=== PATIENT | female | born 1975 | race Caucasian/White ===

== ENCOUNTER 2017-09-24 03:57 | Inpatient (IN) | payer MEDICARE, MEDICAID ==
[2017-09-24] VITALS (15 sets, daily range): BP systolic 98–167; BP diastolic 63–108
[~2017-09-24] VITALS: Ht 165.1 cm; Wt 67.9 kg
[~2017-09-24 03:57] MED LIST: CLIN-79 PO; ESOM20CA PO; HYDR-569 PO; INSU100V36 SQ; LANTUS SQ; LISI-222 PO; SYN0.025T PO
[2017-09-24] MEDS ORDERED: normal saline 1000ML IV soln IVB ONE ×3 (04:05→05:35)
[2017-09-24] MEDS ORDERED: ondansetron/PF 4mg/2ml inj IV ONE (04:15)
[2017-09-24] MEDS ORDERED: acetaminophen 325mg tablet PO ONE (04:40)
[2017-09-24 04:45] LABS: BASOPHILS % (AUTO) 0.2 % (0-1); EOSINOPHILS # (AUTO) 0.3 X10'3 (0-0.9); EOSINOPHILS % (AUTO) 1.5 % (0-6); HEMATOCRIT 45.2 % (35.0-45.0); HEMOGLOBIN 14.2 g/dl (12.0-16.0); LYMPHOCYTES # (AUTO) 1.4 X10'3 (1.1-4.8); LYMPHOCYTES % (AUTO) 8.6 % (21-51); MEAN CORPUSCULAR HEMOGLOBIN 25.1 PG (27.0-31.0); MEAN CORPUSCULAR HGB CONC 31.4 % (33.0-36.5); MEAN CORPUSCULAR VOLUME 79.8 FL (78-98); MEAN PLATELET VOLUME 10.1 FL (7.4-10.4); MONOCYTES # (AUTO) 0.6 X10'3 (0-0.9); MONOCYTES % (AUTO) 3.4 % (2-12); NEUTROPHILS # (AUTO) 14.5 X10'3 (1.8-7.7); NEUTROPHILS % (AUTO) 86.3 % (42-75); PLATELET COUNT 341 X10'3 (140-440); RED BLOOD COUNT 5.67 X10'6 (4.20-5.60); WHITE BLOOD COUNT 16.8 X10'3 (4.5-11.0)
[2017-09-24 04:59] LABS: ALANINE AMINOTRANSFERASE 28 U/L (12-78); ALBUMIN 3.5 G/DL (3.4-5.0); ALBUMIN/GLOBULIN RATIO 0.9 (1.1-1.5); ALKALINE PHOSPHATASE 164 IU/L (46-116); ASPARTATE AMINO TRANSFERASE 22 U/L (10-37); BILIRUBIN,TOTAL 0.6 MG/DL (0.1-1.0); BLOOD UREA NITROGEN 37 MG/DL (7-18); BUN/CREATININE RATIO 18.8 (6.6-38.0); CALCIUM 9.2 MG/DL (8.5-10.1); CHLORIDE 84 MMOL/L (99-107); CREATININE 1.97 MG/DL (0.40-0.90); MAGNESIUM 2.1 MG/DL (1.5-2.4); POTASSIUM 5.6 MMOL/L (3.5-5.1); SODIUM 128 MMOL/L (135-145); TOTAL PROTEIN 7.2 G/DL (6.4-8.2); eGFR 28 ML/MIN
[2017-09-24 05:06] LABS: ABG BASE EXCESS -21.6 mmol/L (-2.0-3.0); ABG HCO3 4.6 mmol/L (22.0-26.0); ABG PCO2 (T) 12.8 mmHg (32.0-45.0); ABG PH (T) 7.168 (7.350-7.450); ABG PO2 (T) 127.6 mmHg (83-108); FCOHb 0.8 % (0.5-1.5); FMetHb 0.1 % (0.3-1.12); FO2Hb 97.1 % (94-100); PATIENT TEMPERATURE 36.3; TOTAL HEMOGLOBIN 14.4 G/dl (12.0-16.0)
[2017-09-24 05:08] LABS: ANION GAP 38 (8-16); TOTAL CARBON DIOXIDE 6.5 MMOL/L (24-32)
[2017-09-24 05:18] LABS: GLUCOSE 870 MG/DL (70-104)
[2017-09-24 05:35] LABS: CLARITY,URINE CLEAR (Clear); COLOR,URINE YELLOW (Yellow); GLUCOSE, URINE >=1000 mg/dl (Neg); KETONES,URINE >=80 mg/dl (Neg); LEUKOCYTE ESTERASE ,URINE NEGATIVE (Neg); NITRITES, URINE NEGATIVE (Neg); OCCULT BLOOD,URINE NEGATIVE (Neg); PH,URINE 5.5 (4.8-8.0); PROTEIN,URINE NEGATIVE (Neg); UROBILINOGEN,URINE 0.2 E.U/dL (0.2-1.0)
[2017-09-24 05:36] LABS: UA COLLECTION TYPE FOLEY CATH
[2017-09-24] MEDS ORDERED: insulin R INFUSION 1 ML IV ONE (05:36)
[2017-09-24] MEDS: insulin regular, DKA only 100 UNIT in normal saline 100ml IV soln 99 ML IV SCH ×6 (05:46→07:35)
[2017-09-24 05:49] LABS: URINE AMPHETAMINE SCREEN POSITIVE (Neg); URINE BARBITUATE SCREEN NEGATIVE (Neg); URINE BENZODIAZEPINES SCREEN NEGATIVE (Neg); URINE CANNABINOID SCREEN NEGATIVE (Neg); URINE COCAINE SCREEN NEGATIVE (Neg); URINE METHADONE SCREEN NEGATIVE (Neg); URINE OPIATE SCREEN POSITIVE (Neg); URINE PHENCYCLIDINE SCREEN NEGATIVE (Neg)
[2017-09-24 05:50] LABS: BACTERIA,URINE FEW /HPF (Neg); RBC,URINE NONE SEEN /HPF (0-2); SQUAMOUS EPITHELIAL CELL,UR FEW /LPF (FEW); WBC,URINE NONE SEEN /HPF (0-4)
[2017-09-24 05:51] LABS: AMORPHOUS URATES 1+
[2017-09-24] MEDS ORDERED: insulin regular, human 10 units/0.1 ml syringe SQ ONE (06:00)
[2017-09-24] MEDS ORDERED: sodium bicarbonate (8.4%) inj. 100 MEQ in sodium chloride 0.45% 500ml 500 ML IV PRN (06:11)
[2017-09-24] MEDS ORDERED: insulin regular, DKA only 100 UNIT in normal saline 100ml IV soln 99 ML IV SCH ×2 (06:11)
[2017-09-24] MEDS ORDERED: sodium bicarbonate (8.4%) inj. 50 MEQ in sodium chloride 0.45% 500ml 250 ML IV PRN (06:11)
[2017-09-24] MEDS ORDERED: magnesium hydroxide 30ml (MOM) UD suspension PO PRN (06:15)
[2017-09-24] MEDS ORDERED: insulin regular, human 10 units/0.1 ml syringe SQ PRN (06:15)
[2017-09-24] MEDS ORDERED: mag hydrox/Alum hydrox/simeth 30ml oral suspension PO PRN (06:15)
[2017-09-24] MEDS ORDERED: potassium Cl 20 mEq SR tablet PO PRN ×2 (06:15)
[2017-09-24] MEDS ORDERED: potassium Cl 40MEQ/NS 500ml 500 ML IV PRN ×2 (06:15)
[2017-09-24] MEDS ORDERED: Neutra Phos packet PO PRN (06:15)
[2017-09-24] MEDS ORDERED: acetaminophen 325mg tablet PO PRN (06:15)
[2017-09-24] MEDS ORDERED: ondansetron/PF 4mg/2ml inj IV PRN (06:15)
[2017-09-24] MEDS ORDERED: sodium phosphate inj. 15 MMOL in dextrose 5%-water 150 ML IV PRN (06:15)
[2017-09-24] MEDS ORDERED: sodium phosphate inj. 30 MMOL in dextrose 5%-water 250 ML IV PRN (06:15)
[2017-09-24] MEDS: normal saline 1000ml 1,000 ML IV SCH ×2 (07:05→10:11)
[2017-09-24] MEDS: K and/or MAG REPLACEMENT MC SCH (08:00)
[2017-09-24 10:02] LABS: ALBUMIN 3.2 G/DL (3.4-5.0); ANION GAP 28 (8-16); BLOOD UREA NITROGEN 32 MG/DL (7-18); BUN/CREATININE RATIO 19.4 (6.6-38.0); CALCIUM 8.1 MG/DL (8.5-10.1); CHLORIDE 102 MMOL/L (99-107); CREATININE 1.65 MG/DL (0.40-0.90); GLUCOSE 376 MG/DL (70-104); PHOSPHORUS 4.6 MG/DL (2.3-4.5); POTASSIUM 4.3 MMOL/L (3.5-5.1); SODIUM 140 MMOL/L (135-145); eGFR 34 ML/MIN
[2017-09-24 10:03] LABS: TOTAL CARBON DIOXIDE 9.8 MMOL/L (24-32)
[2017-09-24 11:07] LABS: ALBUMIN 2.8 G/DL (3.4-5.0); ANION GAP 23 (8-16); BLOOD UREA NITROGEN 32 MG/DL (7-18); BUN/CREATININE RATIO 21.8 (6.6-38.0); CALCIUM 7.8 MG/DL (8.5-10.1); CHLORIDE 104 MMOL/L (99-107); CREATININE 1.47 MG/DL (0.40-0.90); GLUCOSE 287 MG/DL (70-104); POTASSIUM 4.1 MMOL/L (3.5-5.1); SODIUM 139 MMOL/L (135-145); eGFR 39 ML/MIN
[2017-09-24 11:10] LABS: TOTAL CARBON DIOXIDE 12.3 MMOL/L (24-32)
[2017-09-24] MEDS: potassium CL 20mEq in D5-1/2NS 1,000 ML IV PRN ×2 (11:27→17:23)
[2017-09-24 15:05] LABS: ANION GAP 13 (8-16); BLOOD UREA NITROGEN 27 MG/DL (7-18); BUN/CREATININE RATIO 22.3 (6.6-38.0); CALCIUM 7.8 MG/DL (8.5-10.1); CHLORIDE 104 MMOL/L (99-107); CREATININE 1.21 MG/DL (0.40-0.90); GLUCOSE 212 MG/DL (70-104); POTASSIUM 4.4 MMOL/L (3.5-5.1); SODIUM 137 MMOL/L (135-145); TOTAL CARBON DIOXIDE 20.4 MMOL/L (24-32); eGFR 49 ML/MIN
[2017-09-24] MEDS ORDERED: Potassium Cl inj 20 MEQ in DEXTROSE 10 % AND 0.45 % NACL 1,000 ML IV PRN ×2 (17:40→19:40)
[2017-09-24] MEDS ORDERED: [UNRECOGNIZED DRUG - OTHER] IV PRN (17:45)
[2017-09-24] MEDS ORDERED: POTASSIUM CL IV PRN (17:45)
[2017-09-24] MEDS ORDERED: SODIUM CHLORIDE IV PRN (17:45)
[2017-09-24] MEDS ORDERED: DEXTROSE 10 % AND 0.45 % NACL 1,000 ML IV PRN (19:45)
[2017-09-25] VITALS (24 sets, daily range): BP systolic 123–164; BP diastolic 67–105
[2017-09-25] MEDS: acetaminophen 325mg tablet PO PRN (03:06)
[2017-09-25 05:18] LABS: BASOPHILS % (AUTO) 0.3 % (0-1); EOSINOPHILS # (AUTO) 0.2 X10'3 (0-0.9); EOSINOPHILS % (AUTO) 1.5 % (0-6); HEMATOCRIT 42.2 % (35.0-45.0); HEMOGLOBIN 13.7 g/dl (12.0-16.0); LYMPHOCYTES # (AUTO) 1.7 X10'3 (1.1-4.8); LYMPHOCYTES % (AUTO) 14.3 % (21-51); MEAN CORPUSCULAR HEMOGLOBIN 25.1 PG (27.0-31.0); MEAN CORPUSCULAR HGB CONC 32.4 % (33.0-36.5); MEAN CORPUSCULAR VOLUME 77.6 FL (78-98); MEAN PLATELET VOLUME 8.7 FL (7.4-10.4); MONOCYTES # (AUTO) 0.7 X10'3 (0-0.9); MONOCYTES % (AUTO) 6.3 % (2-12); NEUTROPHILS # (AUTO) 9.1 X10'3 (1.8-7.7); NEUTROPHILS % (AUTO) 77.6 % (42-75); PLATELET COUNT 329 X10'3 (140-440); RED BLOOD COUNT 5.45 X10'6 (4.20-5.60); RED CELL DISTRIBUTION WIDTH 18.1 % (11.5-14.5); WHITE BLOOD COUNT 11.8 X10'3 (4.5-11.0)
[2017-09-25 06:11] LABS: ALBUMIN 2.4 G/DL (3.4-5.0); ANION GAP 7 (8-16); BLOOD UREA NITROGEN 16 MG/DL (7-18); BUN/CREATININE RATIO 17.8 (6.6-38.0); CALCIUM 7.6 MG/DL (8.5-10.1); CHLORIDE 109 MMOL/L (99-107); GLUCOSE 181 MG/DL (70-104); PHOSPHORUS 1.4 MG/DL (2.3-4.5); POTASSIUM 3.7 MMOL/L (3.5-5.1); SODIUM 138 MMOL/L (135-145); TOTAL CARBON DIOXIDE 21.6 MMOL/L (24-32); eGFR 68 ML/MIN
[2017-09-25] MEDS: K and/or MAG REPLACEMENT MC SCH (08:00)
[2017-09-25] MEDS: insulin glargine (Lantus) pen - multi-dose SQ SCH ×2 (12:02→21:25)
[2017-09-25 12:43] LABS: HEMOGLOBIN A1C 12.7 % (4.5-6.2)
[2017-09-25] MEDS ORDERED: dextrose 50%-water 50ml dispensing syringe IV PRN ×2 (13:05)
[2017-09-25] MEDS ORDERED: glucagon, human recombinant 1mg kit SUBCUT PRN (13:05)
[2017-09-25] MEDS ORDERED: dextrose ORAL solution 15 GM/59 ML bottle PO PRN ×2 (13:05)
[2017-09-25] MEDS: insulin Lispro (HumaLOG) vial - multi-dose SQ SCH ×3 (13:11→21:25)
[2017-09-26] VITALS (11 sets, daily range): BP systolic 111–149; BP diastolic 61–95
[2017-09-26 02:15] LABS: BASOPHILS # (AUTO) 0.1 X10'3 (0-0.2); EOSINOPHILS # (AUTO) 0.2 X10'3 (0-0.9); EOSINOPHILS % (AUTO) 1.8 % (0-6); HEMATOCRIT 40.7 % (35.0-45.0); HEMOGLOBIN 13.2 g/dl (12.0-16.0); LYMPHOCYTES # (AUTO) 2.2 X10'3 (1.1-4.8); LYMPHOCYTES % (AUTO) 21.9 % (21-51); MEAN CORPUSCULAR HEMOGLOBIN 25.4 PG (27.0-31.0); MEAN CORPUSCULAR HGB CONC 32.5 % (33.0-36.5); MEAN CORPUSCULAR VOLUME 78.3 FL (78-98); MEAN PLATELET VOLUME 8.8 FL (7.4-10.4); MONOCYTES # (AUTO) 0.8 X10'3 (0-0.9); MONOCYTES % (AUTO) 7.8 % (2-12); NEUTROPHILS # (AUTO) 6.7 X10'3 (1.8-7.7); NEUTROPHILS % (AUTO) 67.5 % (42-75); PLATELET COUNT 313 X10'3 (140-440); RED BLOOD COUNT 5.19 X10'6 (4.20-5.60); RED CELL DISTRIBUTION WIDTH 17.7 % (11.5-14.5)
[2017-09-26 02:19] LABS: MAGNESIUM 1.7 MG/DL (1.5-2.4)
[2017-09-26] MEDS: acetaminophen 325mg tablet PO PRN (02:31)
[2017-09-26 02:34] LABS: ALANINE AMINOTRANSFERASE 28 U/L (12-78); ALBUMIN 2.3 G/DL (3.4-5.0); ALBUMIN/GLOBULIN RATIO 0.7 (1.1-1.5); ALKALINE PHOSPHATASE 101 IU/L (46-116); ANION GAP 9 (8-16); ASPARTATE AMINO TRANSFERASE 29 U/L (10-37); BILIRUBIN,TOTAL 0.3 MG/DL (0.1-1.0); BLOOD UREA NITROGEN 15 MG/DL (7-18); BUN/CREATININE RATIO 22.1 (6.6-38.0); CALCIUM 8.2 MG/DL (8.5-10.1); CHLORIDE 107 MMOL/L (99-107); CREATININE 0.68 MG/DL (0.40-0.90); GLUCOSE 196 MG/DL (70-104); SODIUM 138 MMOL/L (135-145); TOTAL CARBON DIOXIDE 21.6 MMOL/L (24-32); TOTAL PROTEIN 5.5 G/DL (6.4-8.2); eGFR > 90 ML/MIN
[2017-09-26] MEDS ORDERED: haloperidol 5mg tablet PO PRN (02:45)
[2017-09-26] MEDS ORDERED: haloperidol lactate 5mg/ml inj IM PRN (02:45)
[2017-09-26] MEDS ORDERED: LORazepam 2 mg/ml vial IV PRN (02:45)
[2017-09-26] MEDS: K and/or MAG REPLACEMENT MC SCH (08:00)
[2017-09-26] MEDS: LORazepam 1 MG tablet PO PRN ×2 (08:35→15:50)
[2017-09-26] MEDS: insulin glargine (Lantus) pen - multi-dose SQ SCH (09:17)
[2017-09-26] MEDS: insulin Lispro (HumaLOG) vial - multi-dose SQ SCH (17:16)
== END 2017-09-26 17:55 | disposition home or self-care (01) | DRG 682 ==
LOC: ER 03:58 → ED HOLD 06:11 → CICU 2S 08:30 → PCU 3S 09-26 08:28
PROVIDERS: ADMIT Internal Medicine Critical Care Medicine; ATTEND Internal Medicine Critical Care Medicine
DX: N17.9 Acute kidney failure, unspecified (principal); E10.10 Type 1 diabetes mellitus with ketoacidosis without coma; E03.9 Hypothyroidism, unspecified; E86.0 Dehydration; F12.90 Cannabis use, unspecified, uncomplicated; F15.10 Other stimulant abuse, uncomplicated; N90.89 Other specified noninflammatory disorders of vulva and perineum; I10 Essential (primary) hypertension; F41.9 Anxiety disorder, unspecified; G89.29 Other chronic pain; Z90.49 Acquired absence of other specified parts of digestive tract; Z79.4 Long term (current) use of insulin; Z79.899 Other long term (current) drug therapy; Z86.14 Personal history of Methicillin resistant Staphylococcus aureus infection; Z83.3 Family history of diabetes mellitus; Z82.49 Family history of ischemic heart disease and other diseases of the circulatory system
CPT/HCPCS: 36415; 36600; 71010; 80048; 80053; 80305; 81001; 82009; 82803; 82948; 83036; 83735; 84100; 85018; 85025; 87070; 96361; 96372; 96374; 99291; A4315; A6213; J1815; J2405; J3480; J7030; J7060; J7131

== ENCOUNTER 2019-06-26 15:12 | Emergency (ER) | payer MEDICARE, MEDICAID ==
[~2019-06-26] VITALS: Ht 165.1 cm; Wt 64.5 kg
[~2019-06-26 15:12] MED LIST changes: -CLIN-79 PO; +CLIN150C8 PO; +HYDR-4383 PO; -HYDR-569 PO
[2019-06-26] MEDS ORDERED: TETanus/Pertussis (Acell)/Diphther VAC/PF (Tdap-Adult) 0.5ml syringe IM ONE (16:50)
[2019-06-26] MEDS ORDERED: SULF1TAB49 PO (17:50)
[2019-06-26] MEDS ORDERED: CEPH-572 PO (17:50)
[2019-06-26 18:34] VITALS: BP 145/91
== END 2019-06-26 18:32 | disposition home or self-care (01) ==
LOC: ER 15:12
DX: L02.611 Cutaneous abscess of right foot (principal); I10 Essential (primary) hypertension; E11.9 Type 2 diabetes mellitus without complications; E03.9 Hypothyroidism, unspecified; G89.29 Other chronic pain; F12.90 Cannabis use, unspecified, uncomplicated; F15.90 Other stimulant use, unspecified, uncomplicated; I25.10 Atherosclerotic heart disease of native coronary artery without angina pectoris; F41.9 Anxiety disorder, unspecified; Z90.49 Acquired absence of other specified parts of digestive tract; Z86.14 Personal history of Methicillin resistant Staphylococcus aureus infection; Z79.2 Long term (current) use of antibiotics; Z79.4 Long term (current) use of insulin; Z79.899 Other long term (current) drug therapy
CPT/HCPCS: 10060; 73620; 82948; 90471; 99283